=== PATIENT | female | born 1985 | race American Indian/Alaskan Native ===

== ENCOUNTER 2017-03-24 11:18 | Emergency (ER) | payer SELFPAY ==
[2017-03-24 12:57] LABS: Basophils % (Auto) 0.5 % (0.0-1.8); Eosinophils % (Auto) 0.1 % (0.0-4.3); Hematocrit 42.4 % (30.3-42.9); Hemoglobin 13.7 gm/dl (10.1-14.3); Mean Corpuscular HGB Conc 32 % (30-34); Mean Corpuscular Hemoglobin 30 pg (28-32); Mean Corpuscular Volume 92 fl (79-97); Platelet Count 295 K/mm3 (140-440); Red Cell Distribution Width 13.6 % (13.2-15.2); White Blood Count 16.4 K/mm3 (4.5-11.0)
[2017-03-24 13:05] LABS: Bacteria,Urine 2+ /HPF (Negative); Bilirubin,Urine NEG (Negative); Blood,Urine SM (Negative); Ketones,Urine 20 mg/dL (Negative); Leukocyte Esterase,Urine SM (Negative); Mucus,Urine 1+ /HPF; Nitrite,Urine NEG (Negative)
[2017-03-24 13:16] LABS: Alanine Aminotransferase 8 units/L (7-56); Albumin 4.1 g/dL (3.9-5); Albumin/Globulin Ratio 1.3 %; Alkaline Phosphatase 53 units/L (35-129); Anion Gap 18 mmol/L; BUN/Creatinine Ratio 10; Blood Urea Nitrogen 9 mg/dL (7-17); Carbon Dioxide 25 mmol/L (22-30); Chloride 100.6 mmol/L (98-107); Glucose 104 mg/dL (65-100); Lipase 14 units/L (13-60); Sodium 140 mmol/L (137-145); Total Protein 7.3 g/dL (6.3-8.2)
--- NOTE | 2017-03-24 16:48 | Emergency Department Report ---
Chief Complaint: Abdominal Pain Stated Complaint: POSS GALLBLADDER SWELL Time Seen by Provider: 03/24/17 16:44 - HPI History of Present Illness: PT c/o R flank pain, intermittently x a few weeks. PT states she has had trouble eating. PT states she has tried topical OTCs, muscle relaxers and heat for this, but no improvement PT states she had a full body massage and a colonic yesterday - ROS Review of Systems: + n/v + R flank pain + pain increases after eating - Exam Vital Signs: Vital Signs 03/24/17 12:19 Temperature 98 F Pulse Rate 64 Respiratory 18 Rate Blood Pressure 135/84 O2 Sat by Pulse 99 Oximetry Physical Exam: abd soft pt c/o RUQ pain MSE screening note: Focused history and physical exam performed. Due to findings the following was ordered: ED Medical Decision Making - Lab Data Result diagrams: 03/24/17 12:41 03/24/17 12:41 ED Disposition for MSE Condition: Stable Instructions: Abdominal Pain (ED) Referrals: PRIMARY CARE, [Primary Care Provider] - 3-5 Days
--- NOTE | 2017-03-24 18:19 | Ultrasound Report ---
FINAL REPORT PROCEDURE: US ABDOMEN LIMITED TECHNIQUE: Real-time sonography was performed of the right upper quadrant of the abdomen with image documentation. CPT 63090 HISTORY: RUQ pain, n/v COMPARISON: No prior studies are available for comparison. FINDINGS: Visualized portions of the pancreas and liver display no abnormalities, but the body and tail of the pancreas are partially obscured due to bowel gas. There is mild right-sided hydronephrosis. Right kidney measures 11.1 cm in length. No renal stones are seen. There is no evidence of cholelithiasis or cholecystitis. Common bile duct is normal in size IMPRESSION: Mild right-sided hydronephrosis is seen.
[2017-03-24 21:03] VITALS: BP 141/82
--- NOTE | 2017-03-24 21:08 | Emergency Department Report ---
ED Abdominal Pain HPI - General Chief Complaint: Abdominal Pain Stated Complaint: POSS GALLBLADDER SWELL Time Seen by Provider: 03/24/17 16:44 Source: patient Mode of arrival: Ambulatory Limitations: No Limitations - History of Present Illness Initial Comments: 31 yo female with right flank pain for many weeks. She believes that these were muscle spasms and has been going to the chiropractor for adjustments and taking medication. she was told that thsi could be her gallbladder or kidney infection ans came to be evaluated. She c/o n/v for 2 days and says she is always nauseated if she does not feel well.. She had a colonic--colon irrigated at a facility-- on Thursday but does not feel any better. Her pain is in the right flank and radiates to the right groin, also feels like gas is trapped. MD Complaint: flank pain (right) -: Gradual (over weeks), week(s) (many weeks) Location: R flank Radiation: other (right groin) Migration to: no migration Severity scale (0 -10): 4 Quality: aching (spasm) Improves With: nothing Worsens With: movement Associated Symptoms: nausea, vomiting. denies: diarrhea, fever, constipation Treatments Prior to Arrival: prescription analgesics - Related Data Previous Rx's Medication Instructions Recorded Last Taken Type Nitrofurantoin Monohyd/M-Cryst 100 mg PO BID #14 capsule 03/24/17 Unknown Rx [Macrobid 100 mg Capsule] oxyCODONE /ACETAMINOPHEN [Percocet 1 tab PO Q6HR PRN #10 tablet 03/24/17 Unknown Rx 5/325] Allergies Allergy/AdvReac Type Severity Reaction Status Date / Time No Known Allergies Allergy Unverified 03/24/17 12:19 ED Review of Systems ROS: Stated complaint: POSS GALLBLADDER SWELL Other details as noted in HPI Constitutional: denies: chills, fever Eyes: denies: eye pain, eye discharge, vision change ENT: denies: ear pain, throat pain Respiratory: denies: cough, shortness of breath, wheezing Cardiovascular: denies: chest pain, palpitations Endocrine: no symptoms reported Gastrointestinal: nausea, vomiting. denies: abdominal pain, diarrhea Genitourinary: denies: urgency, dysuria, discharge Musculoskeletal: back pain. denies: joint swelling, arthralgia Skin: denies: rash, lesions Neurological: denies: headache, weakness, paresthesias Psychiatric: denies: anxiety, depression Hematological/Lymphatic: denies: easy bleeding, easy bruising ED Past Medical Hx - Past Medical History Previous Medical History?: Yes Additional medical history: back, , spontaneous miscarriage - Family History Family history: no significant - Social History Smoking Status: Current Every Day Smoker Substance Use Type: Alcohol - Medications Home Medications: Home Medications Medication Instructions Recorded Confirmed Last Taken Type Nitrofurantoin Monohyd/M-Cryst 100 mg PO BID #14 capsule 03/24/17 Unknown Rx [Macrobid 100 mg Capsule] oxyCODONE /ACETAMINOPHEN [Percocet 1 tab PO Q6HR PRN #10 tablet 03/24/17 Unknown Rx 5/325] ED Physical Exam - General Limitations: No Limitations General appearance: alert, in no apparent distress - Head Head exam: Present: atraumatic, normocephalic - Eye Eye exam: Present: normal appearance - ENT ENT exam: Present: mucous membranes moist - Neck Neck exam: Present: normal inspection - Respiratory Respiratory exam: Present: normal lung sounds bilaterally. Absent: respiratory distress - Cardiovascular Cardiovascular Exam: Present: regular rate, normal rhythm. Absent: systolic murmur, diastolic murmur, rubs, gallop - GI/Abdominal GI/Abdominal exam: Present: soft, tenderness (right flank), normal bowel sounds , other (no tenderness over gallbladder). Absent: guarding, rebound, rigid - Rectal Rectal exam: Present: deferred - Extremities Exam Extremities exam: Present: normal inspection, full ROM - Back Exam Back exam: Present: normal inspection, full ROM, tenderness (right flank), CVA tenderness (R) - Neurological Exam Neurological exam: Present: alert, oriented X3, CN II-XII intact - Psychiatric Psychiatric exam: Present: normal affect, normal mood - Skin Skin exam: Present: warm, dry, intact, normal color. Absent: rash ED Course Vital Signs 03/24/17 03/24/17 03/24/17 12:19 19:56 20:00 Temperature 98 F 98.6 F Pulse Rate 64 67 67 Respiratory 18 18 18 Rate Blood Pressure 135/84 Blood Pressure 126/90 [Right] O2 Sat by Pulse 99 100 98 Oximetry 03/24/17 03/24/17 20:50 21:00 Temperature Pulse Rate Respiratory 18 Rate Blood Pressure 141/82 Blood Pressure [Right] O2 Sat by Pulse 98 Oximetry ED Medical Decision Making - Lab Data Result diagrams: 03/24/17 12:41 03/24/17 12:41 - Radiology Data Radiology results: report reviewed (US gallbladder: right hydronephrosis, no gallstones, no renal stones) ct abdomen: periumbilical hernia, 1.5mm renal stone at the uvj, mild hydronephrosis Critical care attestation.: If time is entered above; I have spent that time in minutes in the direct care of this critically ill patient, excluding procedure time. 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
[2017-03-24] MEDS ORDERED: VALIUM PO ONE (21:29)
[2017-03-24] MEDS ORDERED: TORADOL IM ONE (21:29)
[2017-03-24] MEDS ORDERED: TORADOL ONE (22:11)
[2017-03-24] MEDS ORDERED: TORADOL IV ONE (22:15)
--- NOTE | 2017-03-24 23:02 | Cat Scan Report ---
FINAL REPORT PROCEDURE: CT ABDOMEN PELVIS W CON TECHNIQUE: Computerized axial tomography of the abdomen and pelvis was performed after the IV injection of iodinated nonionic contrast. HISTORY: right hydronephrosis, pain COMPARISON: Abdomen ultrasound from the same day FINDINGS: Liver and spleen appear normal. There is a small supraumbilical hernia containing fat. It is located 3.3 cm above the umbilicus. Gallbladder and pancreas appear normal. Adrenal glands and abdominal aorta are normal in size. 5 millimeter cyst is suspected in the mid left kidney. There is slight delayed enhancement of the right kidney and no excretion of contrast is seen after greater than 4 minutes following injection. There is mild right-sided ureterectasis to the level of the UVJ. 1.5 millimeter stone is suspected in the distal right UVJ. No bladder abnormality is seen. Mild free pelvic fluid is likely physiologic. Follicles are seen in both ovaries. Mild right-sided constipation is seen. Normal appendix is seen. No evidence of small bowel obstruction is seen. There is transient distention of a few small-bowel loops due to passage of fluid bolus through the small bowel. This appearance does not persist on delayed imaging. IMPRESSION: 1.5 millimeter stone at the right UVJ causes mild right-sided hydronephrosis. Small supraumbilical hernia is seen containing fat. There is mild right-sided constipation.
== END 2017-03-24 23:39 | disposition home or self-care (01) ==
LOC: ED 11:18
DX: N12 Tubulo-interstitial nephritis, not specified as acute or chronic (principal); F17.200 Nicotine dependence, unspecified, uncomplicated; N13.30 Unspecified hydronephrosis
CPT/HCPCS: 36415; 74177; 76705; 80053; 81001; 83690; 84703; 85025; 96374; 99284; J1885; Q9967